=== PATIENT | male | born 1955 | race Caucasian/White ===

== ENCOUNTER 2020-05-04 18:08 | Emergency (ER) | payer OTHER, SELFPAY ==
[2020-05-04 18:29] VITALS: BP 157/81; PULSE 49; RESP 16; TEMP 36.9; O2SAT 97; BMI 38.2
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
[2020-05-04 21:26] VITALS: BP 155/68; PULSE 77; RESP 17; O2SAT 98
--- NOTE | 2020-05-05 08:43 | PC.SOCIAL ---
Called [facility] and Spoke with Chata, She stated that she would give the patient a call with an appointment time.
--- NOTE | 2020-05-10 10:04 | DCPLANNER ---
Patient has a follow up appointment scheduled for , May 11, 2020 at 1:[address] Hubbard. Clinic will call patient with appointment information.
--- NOTE | 2020-05-25 12:57 | DCPLANNER ---
Patient's appointment scheduled for 05.11.20 with ortho was cancelled patient request.
== END 2020-05-04 21:29 | disposition home or self-care (01) ==
PROVIDERS: Emergency Provider Emergency Medicine; PCP Family Medicine
DX: S43.401A Unspecified sprain of right shoulder joint, initial encounter (principal); W17.89XA Other fall from one level to another, initial encounter
CPT/HCPCS: 12345; 70450; 71046; 72125; 73030; 99282; 99283

== ENCOUNTER 2021-07-02 08:35 | Outpatient (CLI) | payer MEDICARE, BC, SELFPAY ==
[2021-07-02 08:50] VITALS: BMI 37.5
--- NOTE | 2021-07-02 08:50 | ECG_ITS ---
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 Baseline heart rate was 55 beats per minute. Baseline blood pressure was 171/83 millimeters of mercury. Target heart rate was 155 beats per minute. Maximum heart rate achieved was 134, which was 86 % of the target heart rate. Maximum blood pressure was 199/90 millimeters of mercury. Total exercise time was 6 minutes 15-seconds. Maximum METs achieved was 7.0, maximum VO2 was 24.5. The reason for ending the test was maximum effort achieved. The patient complained of shortness of breath during the stress test, which then resolved at the end of the test. ELECTROCARDIOGRAM: BASELINE: Sinus bradycardia, normal axis, no significant ST-T changes at the baseline noted. EXERCISE: At the peak exercise level, no significant ST-T changes suggestive of ischemia noted. RECOVERY: During the recovery period, heart rate dropped appropriately multiple PVCs were noted. CONCLUSION: 1. Exercise capacity fair. 2. Heart rate response was appropriate. 3. Blood pressure response was appropriate. 4. Symptoms not suggestive of ischemia. 5. Electrocardiogram portion of the stress test was not suggestive of ischemia. 6. Nuclear scan will be documented separately. Electronically Signed On 07-03-2021 20:31:38 CDT by SHANI MCKEON [email or web address]
--- NOTE | 2021-07-02 08:51 | NMCV_ITS ---
NM melva perf SPECT r/s* [id number] PaulJosh robbmond Age: 65 Gender: M : 1955 Exam Date: 07/02/2021 08:51 Ordering Phys: Fracisco Mckeon MD ([email or web address]) Technologist: POLLO Kenney Exam Location: [facility] Indications: CHEST PAIN STRESS TEST Please see separate stress test report in [facility] for full findings IMAGE PROTOCOL Rest/Stress 1 Exercise Day Radiopharmaceutical Dose (mCi) Administration Site Administered by Rest: Tc-99m 11.0 IV POLLO Kenney Sestamibi Stress:Tc-99m 33.0 IV POLLO Carl Sestamibi Rest: 02-Jul-2021 60 Discovery 630 Stress: 02-Jul-2021 15 Discovery 630 Radiopharmaceutical was injected at 85 % maximum heart rate. Images obtained in supine and prone position. SPECT RESULTS Technical Quality: Excellent Raw Data Analysis: Normal Image Corrections: No attenuation or motion correction applied Summed Stress Score: 5 Summed Rest Score: 13 Summed Difference Score: 1 PERFUSION FINDINGS Mid anterior wall suggestive of old myocardial infarction versus scarring. Medium-sized area of fixed perfusion defect noted in basal to distal inferior and inferoseptal wall with mild reversibility suggestive of old myocardial infarction versus scarring surrounded by mild eileen-infarct ischemia. FUNCTIONAL RESULTS (calculated via Gated SPECT) Stress Image LV EF (%): 58 Stress EDV (mL):135 TID: 0.92 Stress ESV (mL):57 Rest Image LV EF (%): 58 FUNCTIONAL FINDINGS: Basal to distal wall akinesis IMPRESSIONS Medium-sized mid anterior and basal to distal inferior and inferoseptal wall surrounded by mild eileen-infarct ischemia. EKG segment will be documented separately. Fracisco Mckeon MD (Electronically Signed) Final Date: 02 July 2021 13:53 S
[2021-07-02 11:30] VITALS: BP 183/85; PULSE 72
== END 2021-07-02 08:36 | disposition home or self-care (01) ==
LOC: RAD 08:39 → CDL 08:45
PROVIDERS: PCP Family Medicine; Visit Provider Internal Medicine Cardiovascular Disease
DX: R07.9 Chest pain, unspecified (principal)
CPT/HCPCS: 78452; 93017; A9500

== ENCOUNTER → 2023-12-03 08:51 | Outpatient (BNVA) | payer MEDICARE, BC, SELFPAY | PROVIDERS: PCP Family Medicine; Visit Provider Family Medicine | DX: I10 Essential (primary) hypertension (principal); E78.5 Hyperlipidemia, unspecified | CPT/HCPCS: 80053; 80061; 85025 ==

== ENCOUNTER → 2024-02-16 08:15 | Outpatient (BNVA) | payer MEDICARE, BC, SELFPAY | PROVIDERS: PCP Family Medicine; Visit Provider Family Medicine | DX: R73.9 Hyperglycemia, unspecified (principal); E11.9 Type 2 diabetes mellitus without complications | CPT/HCPCS: 83036 ==

== ENCOUNTER → 2024-12-01 11:18 | Outpatient (BNVA) | payer MEDICARE, BC, SELFPAY | PROVIDERS: PCP Family Medicine; Visit Provider Family Medicine | DX: I10 Essential (primary) hypertension (principal); E78.5 Hyperlipidemia, unspecified; E11.9 Type 2 diabetes mellitus without complications; R73.9 Hyperglycemia, unspecified | CPT/HCPCS: 80053; 80061; 83036 ==